=== PATIENT | female | born 1990 | race Caucasian/White ===

== ENCOUNTER 2024-12-16 13:50 | Outpatient (CLI) | payer OTHER ==
[2024-12-16 13:38] VITALS: BP 122/71
[2024-12-16] MEDS ORDERED: INTEGRA PLUS C1 EACH PO (14:18)
[2024-12-16] MEDS ORDERED: PRENATAL TABLE1 EAC1 PO (14:19)
[2024-12-16 15:25] VITALS: BP 116/70
[2024-12-16 20:07] VITALS: BP 113/71; O2SAT 99
[2024-12-16 23:54] VITALS: BP 115/67; O2SAT 99
[2024-12-17 03:00] VITALS: BP 104/71; O2SAT 99
[2024-12-17 07:35] VITALS: BP 111/65
[2024-12-17 10:43] VITALS: BP 111/65
== END 2024-12-17 10:45 | disposition home or self-care (01) ==
LOC: OBS/DEL 13:50
PROVIDERS: ATTEND Obstetrics & Gynecology Gynecology
DX: O26.893 Other specified pregnancy related conditions, third trimester (principal); Z3A.35 35 weeks gestation of pregnancy

== ENCOUNTER 2024-12-28 12:53 | Outpatient (CLI) | payer OTHER ==
[~2024-12-28 12:53] MED LIST: INTEGRA PLUS C1 EACH PO; PRENATAL TABLE1 EAC1 PO
== END 2024-12-28 13:35 | disposition home or self-care (01) ==
LOC: NST 12:53
PROVIDERS: ATTEND Obstetrics & Gynecology Maternal & Fetal Medicine
DX: Z34.83 Encounter for supervision of other normal pregnancy, third trimester (principal)

== ENCOUNTER 2025-01-12 13:15 | Inpatient (IN) | payer OTHER ==
[~2025-01-12] VITALS: Ht 170.2 cm; Wt 92.1 kg
[2025-01-19 13:51] VITALS: BP 105/70
[2025-01-19] MEDS ORDERED: VALTREX1000 MG PO (14:06)
[2025-01-19] MEDS ORDERED: RINGERS SOLUTION,LACTATED 1,000 ML IV SCH (14:30)
[2025-01-19] MEDS ORDERED: AMPICILLIN SODIUM 2,000 MG VIAL IV ONE (14:30)
[2025-01-19 15:14] LABS: BASO % 0.3 % (0.1-1.2); EOS # 0.05 (0.04-0.54); EOS % 0.6 % (0.7-7.0); LYMPH # 1.80 (1.18-3.74); LYMPH % 22.7 % (19.3-53.1); MEAN PLATELET VOLUME 11.50 fl (9.4-12.4); MONO # 0.59 (0.24-0.82); MONO % 7.4 % (4.7-12.5); NEUT # 5.44 (1.56-6.13); NEUT % 68.7 % (34.0-71.1); RED CELL DISTRIBUTION WIDTH 14.0 % (11.6-14.4)
[2025-01-19 15:35] LABS: URINE APPEARANCE Clear; URINE BACTERIA 1568.4 uL (0.0-1933); URINE BILIRRUBIN Negative (NEGATIVE); URINE BLOOD Trace; URINE COLOR Yellow; URINE EPITHELIAL CELLS 35.6 uL (0.0-38.8); URINE GLUCOSE Negative (NEGATIVE); URINE KETONE Negative (NEGATIVE); URINE LEUKOCYTE Moderate; URINE NITRATE Negative; URINE PROTEIN Negative (NEGATIVE); URINE UROBILINOGEN 0.2 E.U./dl; URINE WBC 57.2 uL (0.0-23.2)
[2025-01-19 15:45] LABS: INR < 0.93
[2025-01-19 15:46] LABS: ALT/SGPT 43.0 U/L (12-78); AST/SGOT 25.0 U/L (15-37); BILIRUBIN TOTAL 0.33 mg/dL (0.3-1.2); BUN CREA RATIO 10.0 (7.0-25.0); CREATININE SERUM 0.61 mg/dL (0.55-1.02); GFR 113.66; GLOBULINA 3.5 G/DL (2.4-3.5); GLUCOSE FASTING 77.0 mg/dL (65-100); OSMOLALITY SERUM 272.0 MOSM/KG (275-295)
[2025-01-19 15:51] VITALS: BP 108/67
[2025-01-19 16:13] LABS: URINE CAST 0.00 uL (0.0-1.40); URINE RBC 0.4 uL (0.0-20.8)
[2025-01-19] MEDS ORDERED: MISOPROSTOL 25 MCG TABLET VAG STA (16:33)
[2025-01-19] MEDS ORDERED: MORPHINE SULFATE 4 MG/ML CARTRIDGE IV PRN (16:45)
[2025-01-19] MEDS ORDERED: AMPICILLIN SODIUM 1,000 MG VIAL IV SCH (17:00)
[2025-01-19] MEDS ORDERED: ACETAMINOPHEN 500 MG GEL..CAP PO PRN (17:30)
[2025-01-19] MEDS ORDERED: FAMOTIDINE/PF 20 MG in 0.9 % SODIUM CHLORIDE 8 ML IV PUSH PRN (17:30)
[2025-01-19 19:50] VITALS: BP 100/66
[2025-01-19 23:35] VITALS: BP 124/77
[2025-01-20] VITALS (8 sets, daily range): BP systolic 100–154; BP diastolic 60–76
[2025-01-20] MEDS ORDERED: OXYTOCIN 500 ML IV SCH (09:00)
[2025-01-20] MEDS ORDERED: OXYTOCIN 1,000 ML IV SCH (21:00)
[2025-01-20] MEDS ORDERED: ACETAMINOPHEN WITH CODEINE 1 UDTAB TABLET PO PRN (21:00)
[2025-01-20] MEDS ORDERED: LIDOCAINE HCL 1% 10ML VIAL IJ ONE (21:15)
[2025-01-20] MEDS ORDERED: CHLORHEXIDINE GLUCONATE 120 ML BOTTLE TOP ONE (21:15)
[2025-01-20] MEDS ORDERED: ERYTHROMYCIN BASE OPHT 1GM EACH TUBE OP ONE (21:15)
[2025-01-21] VITALS: BP 108/68
[2025-01-21 10:07] VITALS: BP 110/68
[2025-01-21 16:24] VITALS: BP 103/67
[2025-01-22] VITALS: BP 90/55
[2025-01-22 08:00] VITALS: BP 95/57
== END 2025-01-22 14:05 | disposition home or self-care (01) | DRG 807 ==
LOC: LDR 01-19 12:49 → OB/GYN 01-20 13:15
PROVIDERS: ADMIT Obstetrics & Gynecology Gynecology; ATTEND Obstetrics & Gynecology Gynecology
PROC: 3E0P7VZ Introduction of Hormone into Female Reproductive, Via Natural or Artificial Opening (ICD-10-PCS; 2025-01-19)
PROC: 4A1HXCZ Monitoring of Products of Conception, Cardiac Rate, External Approach (ICD-10-PCS; 2025-01-19)
PROC: 10E0XZZ Delivery of Products of Conception, External Approach (ICD-10-PCS; principal; 2025-01-20)
PROC: 0W8NXZZ Division of Female Perineum, External Approach (ICD-10-PCS; 2025-01-20)
PROC: 3E033VJ Introduction of Other Hormone into Peripheral Vein, Percutaneous Approach (ICD-10-PCS; 2025-01-20)
DX: O80 Encounter for full-term uncomplicated delivery (principal); Z37.0 Single live birth; Z3A.38 38 weeks gestation of pregnancy

== ENCOUNTER 2025-01-12 16:15 | Outpatient (CLI) | payer OTHER | END 2025-01-12 17:23 | disposition home or self-care (01) | LOC: NST 16:15 | PROVIDERS: ATTEND Obstetrics & Gynecology Maternal & Fetal Medicine | DX: Z34.83 Encounter for supervision of other normal pregnancy, third trimester (principal) ==